=== PATIENT | male | born 1995 ===

== ENCOUNTER 2017-10-31 10:49 | Emergency (ER) | payer OTHER ==
[~2017-10-31] VITALS: Ht 175.3 cm; Wt 96.0 kg
[2017-10-31 10:57] VITALS: TEMP 37; Ht 175.3 cm; Wt 96.0 kg
[2017-10-31 11:42] LABS: BASO % 0.5 %; BASO ABS # 0.04 K/uL (0-0.2); EOS % 1.8 %; EOS ABS # 0.13 K/uL (0-0.5); HEMATOCRIT 47.3 % (42-52); HEMOGLOBIN 16.9 g/dL (14.0-18.0); IG# 0.04 K/uL (0.00-0.02); LYMPH % 31.2 %; LYMPH ABS # 2.28 K/uL (1.2-3.4); MEAN CELL VOLUME 88.9 fL (80-100); MEAN CORPUSCULAR HEMOGLOBIN 31.8 pg (25-34); MEAN CORPUSCULAR HGB CONC 35.7 g/dl (32-36); MEAN PLATELET VOLUME 10.7 fL (7.4-10.4); MONO % 5.6 %; MONO ABS # 0.41 K/uL (0.11-0.59); NEUT % 60.4 %; NEUT ABS # 4.41 K/uL (1.4-6.5); PLATELET COUNT 198 K/uL (130-400); RED CELL DISTRIBUTION WIDTH CV 13.3 % (11.5-14.5); RED CELL DISTRIBUTION WIDTH SD 43.5 fL (36.4-46.3); WHITE BLOOD COUNT 7.31 K/uL (4.8-10.8)
[2017-10-31 12:03] LABS: CALCIUM 8.7 mg/dl (8.5-10.1); CREATININE 1.17 mg/dl (0.60-1.40); POTASSIUM 3.8 mmol/L (3.5-5.1)
[2017-10-31 12:13] LABS: TOTAL PROTEIN 7.6 gm/dl (6.4-8.2)
[2017-10-31] MEDS ORDERED: LORA-741 PO (12:16)
[2017-10-31] MEDS ORDERED: LISD70CA PO (12:16)
[2017-10-31] MEDS ORDERED: CLON1TAB3 PO (12:16)
[2017-10-31] MEDS ORDERED: TRAZ100T29 PO (12:16)
[2017-10-31] MEDS ORDERED: EFFSR150 PO (12:16)
[2017-10-31] MEDS ORDERED: PROP10TA7 PO (12:16)
[2017-10-31] MEDS ORDERED: NICOTINE 14 MG/24 HR TDSY TD STA (12:42)
[2017-10-31] MEDS ORDERED: NICOTINE POLACRILEX 2 MG GUM MT PRN (14:15)
[2017-10-31] MEDS ORDERED: SODIUM CHLORIDE 0.65% NA SOLN 45 ML (OCEAN) PRN (14:15)
[2017-10-31] MEDS ORDERED: BISMUTH SUBSALICYLATE PER ML OMNICELL CHARGE PO PRN (14:15)
[2017-10-31] MEDS ORDERED: hydrOXYzine HCL 25 MG TAB PO PRN ×2 (14:15)
[2017-10-31] MEDS ORDERED: ALUMINUM/MAGNESIUM SUSP 30 ML UDC PO PRN (14:15)
[2017-10-31] MEDS ORDERED: MAGNESIUM HYDROXIDE SUSP 30 ML UDC PO PRN (14:15)
[2017-10-31] MEDS ORDERED: ACETAMINOPHEN 325 MG TAB PO PRN (14:15)
[2017-10-31] MEDS ORDERED: LORAZEPAM 1 MG TAB SL STA (14:56)
--- NOTE | 2017-10-31 16:37 | EMERGENCY ROOM VISIT NOTE ---
History Report prepared by Luh: Kris Zaman Under the Supervision of: Dr. Napoleon Sahu M.D. First contact with patient: 11:29 Chief Complaint: MENTAL HEALTH EVALUATION Stated Complaint: SUICIDAL THOUGHTS, PANIC ATTACKS History of Present Illness The patient is a 22 year old male who presents to the Emergency Room with concerns over his worsening mental status and increasing suicidal thoughts that he has been experiencing for the past week, since he ran out of his medications. The patient was following with [facility] who was prescribing his psych medications, but he missed to many appointments and they took him off of their services. He has not had any of his medications in the past week. He is formally diagnosed with ADD, panic disorder, major depression, and anxiety disorder. He has been an inpatient in [place] before. He denies any attempts to hurt himself recently, and he has not had any homicidal ideations. He is not hearing any voices. He has no physical complaints aside from global shaking and tremors. He lives at home with his father. Source of History: patient Onset: 1 week Position: other (Psych) Quality: other (Suicidal ideation) Timing: worsening Note: Global shaking Review of Systems See HPI for pertinent positives & negatives. A total of 10 systems reviewed and were otherwise negative. Past Medical & Surgical Medical Problems: (1) Depression (2) Hypertension Hypertension Old medical records were reviewed. Nurse's notes were reviewed and I agree with. Family History Diabetes mellitus FHx: cancer Social History Smoking Status: Current Some Day Smoker Marital Status: single Housing Status: lives with family Occupation Status: unemployed Current/Historical Medications Scheduled Lisdexamfetamine Dimesylate (Vyvanse), 70 MG PO DAILY Propranolol (Inderal), 10 MG PO BID Trazodone Hcl (Trazodone), 100 MG PO HS Venlafaxine Hcl (Effexor Extended Rel), 150 MG PO DAILY Scheduled PRN Clonazepam (Klonopin), 1 MG PO BID PRN for Anxiety/Agitation Lorazepam (Ativan), 0.5 MG PO Q6H PRN for Anxiety/Agitation Allergies Coded Allergies: No Known Allergies (Unverified , 10/31/17) Physical Exam Vital Signs Date Time Temp Pulse Resp B/P (MAP) Pulse Ox O2 Delivery O2 Flow Rate FiO2 10/31/17 12:43 72 16 152/91 99 Room Air 10/31/17 10:57 37.0 104 18 159/95 99 Room Air Physical Exam General: Non-ill appearing young male in no acute distress. Answers questions quietly, but appropriately. HEENT: Normal cephalic atraumatic. Pupils are equal round and reactive to light. Extraocular movements are intact. Oropharynx is pink with moist mucous membranes. No swelling of the mouth lips or tongue. Neck: Supple with a midline trachea. No meningeal signs or stiffness, no JVD or bruits. No Stridor. Chest: Clear to auscultation bilaterally. No wheezes or rhonchi. No increased work of breathing. Heart: regular rate and rhythm. Abdomen: Soft nontender, nondistended without rebound guarding or rigidity. Extremities: No cyanosis clubbing or edema. No calf tenderness or assymetry Spine/Back. Non tender to palpation. No CVA tenderness Skin: Good turgor without rashes. Neurologic exam: Cranial nerves two through 12 are intact. Motor and sensation are intact and symmetrical throughout. PSYCH: Flattened affect, normal thought process. Medical Decision & Procedures Laboratory Results 10/31/17 11:27 Red Blood Count 5.32, Mean Corpuscular Volume 88.9, Mean Corpuscular Hemoglobin 31.8, Mean Corpuscular Hemoglobin Concent 35.7, Mean Platelet Volume 10.7, Neutrophils (%) (Auto) 60.4, Lymphocytes (%) (Auto) 31.2, Monocytes (%) (Auto) 5.6, Eosinophils (%) (Auto) 1.8, Basophils (%) (Auto) 0.5, Neutrophils # (Auto) 4.41, Lymphocytes # (Auto) 2.28, Monocytes # (Auto) 0.41, Eosinophils # (Auto) 0.13, Basophils # (Auto) 0.04 10/31/17 11:27 Test 10/31/17 11:20 10/31/17 11:27 Urine Color DK YELLOW Urine Appearance CLEAR (CLEAR) Urine pH 6.5 (4.5-7.5) Urine Specific Kaplan 1.029 (1.000-1.030) Urine Protein NEG (NEG) Urine Glucose (UA) NEG (NEG) Urine Ketones NEG (NEG) Urine Occult Blood NEG (NEG) Urine Nitrite NEG (NEG) Urine Bilirubin NEG (NEG) Urine Urobilinogen NEG (NEG) Urine Leukocyte Esterase NEG (NEG) Urine Opiates Screen NEG (NEG) Urine Methadone, Qualitative NEG (NEG) Urine Barbiturates NEG (NEG) Urine Phencyclidine (PCP) Level NEG (NEG) Ur Amphetamine/Methamphetamine NEG (NEG) MDMA (Ecstasy) Screen NEG (NEG) Urine Benzodiazepines Screen NEG (NEG) Urine Cocaine Metabolite NEG (NEG) Urine Marijuana (THC) NEG (NEG) White Blood Count 7.31 K/uL (4.8-10.8) Red Blood Count 5.32 M/uL (4.7-6.1) Hemoglobin 16.9 g/dL (14.0-18.0) Hematocrit 47.3 % (42-52) Mean Corpuscular Volume 88.9 fL (80-100) Mean Corpuscular Hemoglobin 31.8 pg (25-34) Mean Corpuscular Hemoglobin Concent 35.7 g/dl (32-36) Platelet Count 198 K/uL (130-400) Mean Platelet Volume 10.7 fL (7.4-10.4) Neutrophils (%) (Auto) 60.4 % Lymphocytes (%) (Auto) 31.2 % Monocytes (%) (Auto) 5.6 % Eosinophils (%) (Auto) 1.8 % Basophils (%) (Auto) 0.5 % Neutrophils # (Auto) 4.41 K/uL (1.4-6.5) Lymphocytes # (Auto) 2.28 K/uL (1.2-3.4) Monocytes # (Auto) 0.41 K/uL (0.11-0.59) Eosinophils # (Auto) 0.13 K/uL (0-0.5) Basophils # (Auto) 0.04 K/uL (0-0.2) RDW Standard Deviation 43.5 fL (36.4-46.3) RDW Coefficient of Variation 13.3 % (11.5-14.5) Immature Granulocyte % (Auto) 0.5 % Immature Granulocyte # (Auto) 0.04 K/uL (0.00-0.02) Anion Gap 9.0 mmol/L (3-11) Est Creatinine Clear Calc Drug Dose 111.3 ml/min Estimated GFR () 100.5 Estimated GFR (Non- 86.7 BUN/Creatinine Ratio 10.5 (10-20) Calcium Level 8.7 mg/dl (8.5-10.1) Total Bilirubin 1.1 mg/dl (0.2-1) Aspartate Amino Transf (AST/SGOT) 30 U/L (15-37) Alanine Aminotransferase (ALT/SGPT) 102 U/L (12-78) Alkaline Phosphatase 118 U/L (45-117) Total Protein 7.6 gm/dl (6.4-8.2) Albumin 4.0 gm/dl (3.4-5.0) Globulin 3.6 gm/dl (2.5-4.0) Albumin/Globulin Ratio 1.1 (0.9-2) Thyroid Stimulating Hormone (TSH) 0.928 uIu/ml (0.300-4.500) Salicylates Level < 1.7 mg/dl (2.8-20) Acetaminophen Level < 2 ug/ml (10-30) Ethyl Alcohol mg/dL < 3.0 mg/dl (0-3) Laboratory studies as stated above per my review. Medications Administered Medications (Trade) Dose Ordered Sig/Raúl Route Start Time Stop Time Status Last Admin Dose Admin Nicotine (Nicoderm Cq 14MG Patch) 1 patch NOW STAT TD 10/31/17 12:42 10/31/17 15:09 DC 10/31/17 13:00 1 PATCH Lorazepam (Ativan Tab) 1 mg NOW STAT SL 10/31/17 14:56 10/31/17 14:59 DC 10/31/17 15:19 1 MG ED Course 1130: Past medical records reviewed. The patient was evaluated in room A6, and a complete history and physical examination were performed. 1242: Ordered Nicotine 1 patch TD 1234: The patient has been medically cleared at this time. He has been evaluated by [facility] Case Template Storage Clerk. 1402: The patient has been accepted by [address] [place] [address]. The patient will go as an inpatient. Medical Decision Differentia Diagnosis includes; depression, anxiety, withdrawal, suicidal ideation, toxicologic. This patient comes in as described above. He was placed in room A6. He is here for treatment and evaluation of depression and anxiety. He ran out of his medications has been very anxious he denies any recent suicidal attempt but has had some thoughts but no plan. No homicidal ideations. No physical complaints. Multiple blood testing was obtained. He was medically cleared. He is nothing to suggest metabolic infectious or toxicologic process. He was further evaluated from a psychiatric standpoint. He is going to come in voluntarily for mental health. They did find availability at [facility] and he will be transferred there. He was given a nicotine patch while he was here. He is in agreement with the plan and will be signing in voluntary. Medication Reconcilliation Current Medication List: was personally reviewed by me Blood Pressure Screening Patient's blood pressure: Elevated blood pressure Impression Primary Impression: Depression Additional Impression: Acute anxiety Scribe Attestation The scribe's documentation has been prepared under my direction and personally reviewed by me in its entirety. I confirm that the note above accurately reflects all work, treatment, procedures, and medical decision making performed by me. Departure Information Dispostion Mental Health Acute Care (-south) Referrals No Doctor, Assigned (PCP) Patient Instructions My [facility] Problem Qualifiers
[2017-10-31] MEDS ORDERED: CLONAZEPAM 1 MG TAB PO STA (16:49)
[2017-10-31 17:57] VITALS: BP 138/90; PULSE 93; O2SAT 99
[2017-11-01] MEDS ORDERED: NICOTINE 7 MG/24 HR TDSY TD SCH (09:00)
== END 2017-10-31 18:00 ==
LOC: EDBD 10:51 → MERGE 10:51 → C.EDB 10:51 → C.EDA 18:00
DX: F32.9 Major depressive disorder, single episode, unspecified (principal); F41.9 Anxiety disorder, unspecified; F90.9 Attention-deficit hyperactivity disorder, unspecified type; I10 Essential (primary) hypertension; F17.200 Nicotine dependence, unspecified, uncomplicated; Z83.3 Family history of diabetes mellitus